=== PATIENT | male | born 1965 | race Caucasian/White ===

== ENCOUNTER 2024-02-18 11:54 | Emergency (ER) | payer SELFPAY ==
[~2024-02-18] VITALS: Ht 177.8 cm; Wt 72.7 kg
[2024-02-18 12:04] VITALS: TEMP 98.1
[2024-02-18] MEDS ORDERED: Albuterol/Ipratropium 3 MG-0.5 MG/3 ML Neb Soln IH ONE ×2 (12:30→13:45)
[2024-02-18] MEDS ORDERED: methylPREDNISolone Sod Succ 125 MG/2 ML VIAL IV ONE (12:30)
[2024-02-18 12:44] LABS: BASO # 0.1 K/mm3 (0.0-0.2); EOS # 0.2 K/mm3 (0.0-0.7); EOS % 4.4 % (0.0-4.0); GRAN # 2.6 K/mm3 (1.4-6.5); GRAN % 47.5 % (42.2-75.2); HEMOGLOBIN 14.1 g/dl (13.5-18.0); LYMPH # 1.8 K/mm3 (1.2-3.4); LYMPH % 33.7 % (20.0-51.0); MEAN CELL VOLUME 92 fl (80.0-100.0); MEAN CORPUSCULAR HEMOGLOBIN 31 pg (27-31); MEAN CORPUSCULAR HGB CONC 34 g/dl (33.0-37.0); MEAN PLATELET VOLUME 10.1 fl (7.4-10.4); MONO # 0.7 K/mm3 (0.1-0.6); MONO % 12.2 % (1.7-9.3); PLATELET COUNT 246 K/mm3 (130-400); RED BLOOD COUNT 4.57 M/mm3 (4.20-5.60); REDCELL DISTRIBUTION WIDTH-CV 13.6 % (11.5-14.5)
[2024-02-18 13:07] LABS: ALANINE AMINOTRANSFERASE 211 U/L (0-55); ALKALINE PHOSPHATASE 89 U/L (40-150); ANION GAP 14 mmol/L (7-16); AST,SGOT 214 U/L (5-34); BLOOD UREA NITROGEN 12 mg/dL (8-26); CALCIUM 9.6 mg/dL (8.4-10.2); CHLORIDE 105 mEq/L (98-107); CREATININE, serum 0.86 mg/dL (0.72-1.25); GLUCOSE 85 mg/dL (70-99); POTASSIUM 3.7 mEq/L (3.5-4.5); SODIUM 140 mEq/L (136-145); TOTAL PROTEIN 7.2 g/dl (6.2-8.1)
[2024-02-18 13:15] LABS: TROPONIN-I < 0.010 ng/mL (0.00-0.033)
[2024-02-18] MEDS ORDERED: Albuterol 90 MCG/PUFF 8 GM MDI IH ONE (14:15)
[2024-02-18] MEDS ORDERED: PREDNISONE20 MG PO (14:46)
[2024-02-18] MEDS ORDERED: ALBUTEROL0.83 MG/ML IH (14:46)
[2024-02-18] MEDS ORDERED: FLOVENT 220MCG7.9 GM IH (14:46)
[2024-02-18 15:01] VITALS: BP 131/91; PULSE 88
[2024-02-18 15:09] LABS: BILIRUBIN,TOTAL 0.5 mg/dL (0.2-1.2)
== END 2024-02-18 15:01 | disposition home or self-care (01) ==
LOC: COL.ER 11:54
PROVIDERS: Nurse Practitioner
DX: J44.1 Chronic obstructive pulmonary disease with (acute) exacerbation (principal); F17.210 Nicotine dependence, cigarettes, uncomplicated
CPT/HCPCS: J2919